=== PATIENT | female | born 1995 | race Caucasian/White ===

== ENCOUNTER → 2016-08-14 | Outpatient (CLI) | payer OTHER | LOC: RAD 16:08 | DX: R04.2 Hemoptysis (principal); J98.09 Other diseases of bronchus, not elsewhere classified | CPT/HCPCS: 71020 ==

== ENCOUNTER → 2016-08-29 | Outpatient (CLI) | payer OTHER | LOC: CT 13:38 | DX: R04.2 Hemoptysis (principal) | CPT/HCPCS: 71250 ==

== ENCOUNTER 2021-01-02 20:04 | Emergency (ER) | payer OTHER ==
[~2021-01-02 20:04] MED LIST: BENTYL 20MG TAB20 MG PO; COLACE 100MG C100 MG PO; IBUPROFEN600 MG PO; LORTAB 5-325 M1 EACH PO; MACROBID 100 M100 MG PO; REGLAN10 MG PO
[2021-01-02 20:59] LABS: HEMOGLOBIN 15.5 gm/dl (12.3-15.3); RED BLOOD COUNT 4.54 M/UL (4.00-5.10); WHITE BLOOD COUNT 12.7 K/UL (4.5-11.0)
[2021-01-02 21:17] LABS: BUN/CREATININE RATIO 10 (0-10)
[2021-01-02] MEDS ORDERED: MAGNESIUM400 MG PO (23:54)
== END 2021-01-03 | disposition home or self-care (01) ==
LOC: ER1 20:04
PROVIDERS: Emergency Medicine
DX: E83.42 Hypomagnesemia (principal); F41.9 Anxiety disorder, unspecified; E87.6 Hypokalemia; Z20.822 Contact with and (suspected) exposure to COVID-19
CPT/HCPCS: 70450; 80053; 80307; 81001; 82550; 82553; 83735; 84484; 84703; 85025; 85379; 93005; 96365; 96375; 96376; 99285; G0480; J2060; J3475; U0002

== ENCOUNTER 2021-11-25 23:56 | Emergency (ER) | payer OTHER ==
[~2021-11-25 23:56] MED LIST changes: +MAGNESIUM400 MG PO
== END 2021-11-26 03:06 | disposition left against medical advice (07) ==
LOC: ER1 23:56
DX: Z53.21 Procedure and treatment not carried out due to patient leaving prior to being seen by health care provider (principal)